=== PATIENT | male | born 1980 | race Caucasian/White ===

== ENCOUNTER 2021-10-11 15:38 | Outpatient (RCR) | payer OTHER | END 2021-10-21 | disposition home or self-care (01) | LOC: WSOH | DX: S61.216D Laceration without foreign body of right little finger without damage to nail, subsequent encounter (principal); Y99.0 Civilian activity done for income or pay ==

== ENCOUNTER 2023-12-01 07:59 | Emergency (ER) | payer SELFPAY ==
[~2023-12-01] VITALS: Ht 188 cm; Wt 109.1 kg
[2023-12-01 07:59] VITALS: TEMP 97.9
[2023-12-01 09:09] LABS: BASO # 0.1 K/mm3 (0.0-0.2); EOS % 0.8 % (0.0-4.0); GRAN # 1.6 K/mm3 (1.4-6.5); GRAN % 30.6 % (42.2-75.2); HEMATOCRIT 41.6 % (42.0-52.0); HEMOGLOBIN 14.6 g/dl (13.5-18.0); LYMPH # 2.7 K/mm3 (1.2-3.4); LYMPH % 51.3 % (20.0-51.0); MEAN CELL VOLUME 88 fl (80.0-100.0); MEAN CORPUSCULAR HEMOGLOBIN 31 pg (27-31); MEAN CORPUSCULAR HGB CONC 35 g/dl (33.0-37.0); MEAN PLATELET VOLUME 10.8 fl (7.4-10.4); MONO # 0.8 K/mm3 (0.1-0.6); MONO % 16.1 % (1.7-9.3); PLATELET COUNT 222 K/mm3 (130-400); RED BLOOD COUNT 4.72 M/mm3 (4.20-5.60); REDCELL DISTRIBUTION WIDTH-CV 11.7 % (11.5-14.5)
[2023-12-01 09:56] LABS: ALBUMIN 3.6 g/dL (3.5-5.0); BILIRUBIN,TOTAL 0.4 mg/dL (0.2-1.2); CALCIUM 8.8 mg/dL (8.4-10.2); CREATININE, serum 1.06 mg/dL (0.72-1.25); POTASSIUM 4.1 mEq/L (3.5-4.5)
[2023-12-01 10:15] VITALS: BP 137/76; PULSE 70
== END 2023-12-01 10:22 | disposition home or self-care (01) ==
LOC: COL.ER 07:59
PROVIDERS: Personal Emergency Response Attendant
DX: R55 Syncope and collapse (principal); E86.0 Dehydration; F17.210 Nicotine dependence, cigarettes, uncomplicated; F17.290 Nicotine dependence, other tobacco product, uncomplicated